=== PATIENT | male | born 1955 | race Caucasian/White ===

== ENCOUNTER 2017-02-10 00:35 | Observation (INO) | payer OTHER ==
[2017-02-10 01:07] LABS: #Basophils 0.2 thou/uL (0.0-0.2); #Eosinphils 0.8 thou/uL (0.0-0.7); #Lymphocytes 3.5 thou/uL (1.20-3.40); #Monocytes 0.7 thou/uL (0.11-0.59); #Neutrophils 3.5 thou/uL (1.40-6.50); %Basophils 1.8 % (0.0-1.0); %Eosinophils 9.6 % (0.0-10.0); %Lymphocytes 40.5 % (21.0-51.0); %Monocytes 8.5 % (0.0-10.0); Hematocrit 47.6 % (42.0-52.0); Red Blood Cell (RBC) Count 5.27 mill/uL (4.70-6.10); White Blood Cell (WBC) Count 8.7 thou/uL (4.8-10.8)
[2017-02-10 01:27] LABS: ALT (SGPT) 15 U/L (8-55); AST (SGOT) 14 U/L (5-34); Alkaline Phosphatase 73 U/L (40-150); Anion Gap 15 mmol/L (10-20); BUN (Urea Nitrogen) 12 mg/dL (8.4-25.7); Bilirubin, Total 0.4 mg/dL (0.2-1.2); CK (CPK) 46 U/L (30-200); Calc. Creatinine Clearance 0 mL/min (70-130); Calcium 9.7 mg/dL (7.8-10.44); Carbon Dioxide 23 mmol/L (23-31); Chloride 103 mmol/L (98-107); Estimated GFR-MDRD 86; Globulin 3.3 g/dL (2.4-3.5); Protein, Total 7.8 g/dL (5.8-8.1)
[2017-02-10 01:32] LABS: Troponin I Less than 0.010 ng/mL (< 0.028)
[2017-02-10] MEDS ORDERED: cloNIDine HCl 0.1 MG TAB ONE (02:31)
--- NOTE | 2017-02-10 02:49 | PDOC.EVN ---
Event Note - Event Note Event Note: [id number] h&p dictated 1. Chest pain 2. h/o stroke 3. h/o dementia plan; see orders
[2017-02-10] MEDS ORDERED: Acetaminophen 325 MG TAB PO PRN (02:50)
[2017-02-10] MEDS ORDERED: Ondansetron HCl/PF 4 MG/2 ML Vial IVP PRN (02:50)
[2017-02-10] MEDS ORDERED: HYDROcodone/Acetaminophen 5/325 mg Tablet PO PRN (02:50)
[2017-02-10] MEDS ORDERED: Sodium Chloride 0.9% 1,000 ML IV SCH (03:00)
[2017-02-10] MEDS ORDERED: Aspirin 325 MG TAB PO SCH ×2 (03:15→08:00)
[2017-02-10 03:36] LABS: Troponin I Less than 0.010 ng/mL (< 0.028)
--- NOTE | 2017-02-10 04:34 | HP ---
DATE OF ADMISSION: 02/10/2017 CHIEF COMPLAINT: Chest pain. HISTORY OF PRESENT ILLNESS: The patient is a 61-year-old male with past medical history of dementia , stroke, now came to the ER because of chest pain. Chest pain started in the epigastric region, ra diating towards the chest, spasm kind of pain, 10/10, currently none. No aggravating factors, no re lieving factors. The pain started all of sudden. Denies any radiation. Denies any dizziness. [place] of some nausea with the pain. Denies any associated pain. PAST MEDICAL HISTORY: Had stroke and dementia. PAST SURGICAL HISTORY: Jaw surgery. SOCIAL HISTORY: Occasional alcohol. Denies smoking, denies any drugs. FAMILY HISTORY: Positive for heart problems. REVIEW OF SYSTEMS: Constitutional: Denies any fever, denies any chills. Eyes: Denies any vision problems. Ears: Denies any hearing loss. Neck: Denies any neck pain. Cardiovascular: Positive for chest pain. Respiratory system: Denies any cough, denies any sputum production. Gastrointesti nal: Denies nausea, vomiting. Musculoskeletal: Denies any joint deformities. Cranial nerve syste m: Denies syncope. Integumentary: Denies any rash. All other review of systems are reviewed and are negative. PHYSICAL EXAMINATION: CONSTITUTIONAL/VITAL SIGNS: At the time of H\T\P performed, blood pressure is 120/80, afebrile, res pirations 18, pulse ox 97%. GENERAL APPEARANCE: The patient appears comfortable. HEENT: Pupils are equal, round, and reactive to light. Anterior nares patent. Nose normal Ears no rmal. Teeth intact. Tongue is moist. NECK: Supple, no JVD. CARDIOVASCULAR: S1, S2 present. Regular rate and rhythm. No murmurs, no rubs, no gallops. RESPIRATORY: No wheezing, no rhonchi. Breath sounds bilaterally. GASTROINTESTINAL: Abdomen is soft, nontender, no guarding, no organomegaly, no masses felt. MUSCULOSKELETAL: No edema. INTEGUMENTARY: No rashes seen. PSYCHIATRIC: Mood is appropriate at this time. CRANIAL NERVE SYSTEM: Awake, follows command. Strength intact, sensory intact. IMAGING: EKG, no acute ST wave changes. LABORATORY DATA: At the time of H\T\P performed, sodium 137, potassium 3.8, chloride 103, CO2 of 23 , BUN of 12, creatinine 0.89. AST 14, ALT 15, troponin less than 0.010. White count 8.7, hemoglobi n 16.2, platelet count is 213. ASSESSMENT AND PLAN: The patient is a 61-year-old male admitted withchest pain. 1. Chest pain. Plan to check cardiac enzymes. Plan to check 2D echo. Plan to monitor the patient closely. 2. History of stroke. Continue home medications. 3. History of dementia. Continue home medications. The case was discussed in detail with the patient.
[2017-02-10 04:45] VITALS: BMI 22.1
[2017-02-10] MEDS: Nitroglycerin 2% Ointment 1 INCH/1 GM Packet TOP SCH ×2 (05:34→13:23)
--- NOTE | 2017-02-10 07:47 | RAD ---
PORTABLE CHEST 1 VIEW: DATE: 02/10/17. TIME: 12:48 a.m. HISTORY: Chest pain. FINDINGS: The heart size is normal. The lungs are expanded without focal areas of consolidation, pneumothorax , or pleural effusions. IMPRESSION: No radiographic evidence of acute cardiopulmonary process. POS: [facility]
[2017-02-10 08:48] LABS: Troponin I Less than 0.010 ng/mL (< 0.028)
[2017-02-10] MEDS ORDERED: Docusate 100 MG CAP PO SCH (09:00)
[2017-02-10] MEDS ORDERED: Loratadine 10 MG TAB PO SCH (09:00)
[2017-02-10] MEDS ORDERED: Enoxaparin Sodium 40 MG/0.4 ML SYRINGE SC SCH (09:00)
[2017-02-10] MEDS ORDERED: Non-Formulary Item 1 EACH (Cetirizine Hcl [Zyrtec] 10 MG) PO SCH (09:00)
[2017-02-10] MEDS ORDERED: Non-Formulary Item 1 EACH (Fluticasone/Salmeterol [Advair Diskus 100/50] 1 PUFF) INH SCH (09:00)
[2017-02-10] MEDS ORDERED: DOCUSATE SODIUM 100 MG PO SCH (09:00)
--- NOTE | 2017-02-10 10:07 | PDOC.EVN ---
Event Note - Event Note Event Note: Pt seen and examined. no more Chest pain.feels well. CTA b/l.RRR.no RUQ tenderness no edema labs,meds reviewed. Total Cholesterol and TG high.Troponin negative X3 plan-will add NM stress test. Dietary and lifestyle modification advised. Add PPI for possible gastritis.Pt is on daily ASA. Follow [facility] results.
[2017-02-10] MEDS ORDERED: ADENOSINE 60 MG/20 ML VIAL ONE (12:00)
[2017-02-10 12:46] VITALS: BP 140/70; TEMP 97.7
--- NOTE | 2017-02-10 14:02 | DIS ---
DATE OF ADMISSION: 02/10/2017 DATE OF DISCHARGE: 02/10/2017 CONDITION AT THE TIME OF DISCHARGE: Stable and improved. DISCHARGE DIAGNOSES: 1. Chest pain, atypical. Acute coronary syndrome ruled out. 2. Dyslipidemia. 3. History of stroke. 4. History of dementia. DISCHARGE MEDICATIONS: Remain the same as admission medication. Please see admission history and p hysical dictated a few hours ago by Dr. Crystal. New medication, Protonix 40 mg daily. PRIMARY CARE PHYSICIAN: Chalrie Miguel M.D. PROCEDURES DONE IN THE HOSPITAL: Include, 1. Nuclear medicine stress test which is negative for any wall motion abnormality or any reversible or fixed defect. 2. Transthoracic echocardiogram, which showed preserved ejection fraction of 60%-65%, normal diasto lic function without any regional wall motion abnormality. CONSULTATIONS: None. ADMISSION HISTORY: Ms. Patel is a very pleasant 61-year-old male with past medical history of stroke 1 year ago as well as dementia who presented to the emergency room for complaints of spasmodi c epigastric pain radiating to his chest. This was the second episode in the last few years. He wa s admitted for ACS workup earlier this morning. He was hemodynamically stable and his initial cardi ac enzymes and EKG were negative for ACS. Please see admission history and physical for further det ails. HOSPITAL COURSE: The patient underwent nuclear medicine stress test and echocardiogram. Both were u nremarkable and within normal limits. Serial cardiac enzymes were done which were also normal. His lipid panel did show elevated triglycerides at 255 and cholesterol at 200. He is instructed about dietary and lifestyle modification. He is instructed to start fish oil/omega-3 supplementation. As his cardiac symptoms have resolved and his cardiac workup is negative, this is likely gastritis b ecause of daily aspirin use. I am prescribing him Protonix at this time. His liver enzymes and pablito irubin are within normal limits and he did not have any right upper quadrant tenderness to suggest b iliary causes either. At this time, he is hemodynamically stable and will be discharged back to his primary care physician. He was seen and examined prior to discharge and stable. Please see hospitalist progress note from chi's date for further details.
--- NOTE | 2017-02-10 14:31 | NM ---
CARDIAC SPECT: CLINICAL HISTORY: 61-year-old male with chest pain. TECHNIQUE: A myocardial perfusion scan was performed using the single isotope one day protocol with technetium- 99m sestamibi. 9 mCi were injected intravenously for the rest exam followed by 30 mCi for the stress exam. Pharmacologic stress with Adenosine was monitored and interpreted by Dr. Jesus. FINDINGS: Homogeneous tracer distribution is seen in the myocardial segments on stress and rest images without fixed or reversible defects. GATED SPECT LVEF: 76%. WALL MOTION EXAM: Normal. IMPRESSION: Normal myocardial perfusion scan. POS: [facility]
[2017-02-10] MEDS ORDERED: Mometasone/Formoterol 120 PUFF INHALER INH SCH (18:30)
[2017-02-10] MEDS ORDERED: Donepezil HCl 10 MG TAB PO SCH (21:00)
== END 2017-02-10 14:26 | disposition home or self-care (01) ==
LOC: ERS 00:35 → 2SW 02:20
PROVIDERS: ADMIT Internal Medicine; ATTEND Internal Medicine
DX: R07.89 Other chest pain (principal); E78.5 Hyperlipidemia, unspecified; F03.90 Unspecified dementia, unspecified severity, without behavioral disturbance, psychotic disturbance, mood disturbance, and anxiety; Z88.8 Allergy status to other drugs, medicaments and biological substances; Z79.82 Long term (current) use of aspirin; Z79.899 Other long term (current) drug therapy; Z98.890 Other specified postprocedural states; Z86.73 Personal history of transient ischemic attack (TIA), and cerebral infarction without residual deficits; Z87.891 Personal history of nicotine dependence
CPT/HCPCS: 36415; 71010; 78452; 80053; 80061; 82553; 84484; 85025; 93005; 93017; 93306; 94760; 96372; A4216; A9500; G0378; J0153; J1650

== ENCOUNTER 2017-07-03 13:51 | Outpatient (CLI) | payer OTHER | END 2017-07-03 13:52 | disposition home or self-care (01) | LOC: DTY/OP 13:51 | PROVIDERS: ATTEND Family Medicine | DX: E78.5 Hyperlipidemia, unspecified (principal) | CPT/HCPCS: 97802 ==